=== PATIENT | female | born 1975 | race Caucasian/White ===

== ENCOUNTER 2017-06-28 21:20 | Emergency (ER) | payer MEDICAID ==
[~2017-06-28] VITALS: Ht 182.9 cm; Wt 63.5 kg
[~2017-06-28 21:20] MED LIST: TAB-TAB PO
[2017-06-28 21:53] VITALS: BP 165/72; PULSE 85; RESP 18; TEMP 97.7; O2SAT 98
[2017-06-28 22:10] VITALS: BP 138/76; PULSE 71; RESP 18; O2SAT 100
[2017-06-28] MEDS ORDERED: SODIUM CHLOR 0.9% 1000 ML INJ 1,000 ML IV SCH (22:26)
[2017-06-28] MEDS ORDERED: SODIUM CHLORIDE 0.9% FLUSH 10 ML FLUSH IV FLUSH PRN (22:30)
[2017-06-28] MEDS ORDERED: MORPHINE SULFATE 4 MG/ML INJ IV PUSH ONE (22:30)
[2017-06-28] MEDS ORDERED: ONDANSETRON HCL 4 MG/2 ML VIAL IVP ONE (22:30)
--- NOTE | 2017-06-28 22:33 | PD ---
HPI Chief Complaint: Abdominal Pain Time Seen by Provider: 22:28 Travel History International Travel<30 days: No Contact w/Intl Traveler<30days: No Traveled to known affect area: No History of Present Illness HPI 42-year-old female presents to the emergency department for evaluation of right lower quadrant abdominal pain that started yesterday afternoon. She currently rates the pain 9/10, aching and sharp without radiation. She does state the pain is worse with walking. She reports associated nausea, diarrhea. No vomiting. Patient denies . She denies abnormal vaginal discharge. No fevers or chills. She denies urinary symptoms. Patient denies any previous abdominal surgeries. No alleviating factors. Moderate severity. Patient does report history of ovarian cyst in the past with similar symptoms. PFSH Past Medical History Cardiovascular Problems: Yes (SVT, mitral valve prolapse) Diminished Hearing: No Tetanus Vaccination: < 5 Years Influenza Vaccination: No ?: Not LMP: 05/31/17 Past Surgical History Surgical History: No Previous Surgery Social History Alcohol Use: Yes (2-3 daily) Tobacco Use: Yes (1/2PPD) Substance Use: No Allergies-Medications (Allergen,Severity, Reaction): Coded Allergies: penicillin G (Unverified Allergy, Mild, Swelling, 12/12/16) Swelling- feet swelling Reported Meds & Prescriptions Reported Meds & Active Scripts Active No Active Prescriptions or Reported Medications Review of Systems Except as stated in HPI: all other systems reviewed are Neg Physical Exam Narrative GENERAL: Well-nourished, well-developed female patient, afebrile. SKIN: Focused skin assessment warm/dry. HEAD: Normocephalic. Atraumatic. EYES: No scleral icterus. No injection or drainage. NECK: Supple, trachea midline. No JVD or lymphadenopathy. CARDIOVASCULAR: Regular rate and rhythm without murmurs, gallops, or rubs. RESPIRATORY: Breath sounds equal bilaterally. No accessory muscle use. Lungs sounds are clear to auscultation. GASTROINTESTINAL: Abdomen soft and nondistended. Patient has tenderness over right pelvic and right lower quadrant over McBurney's point. MUSCULOSKELETAL: No cyanosis, or edema. BACK: Nontender without obvious deformity. No CVA tenderness. Data Data Last Documented VS Vital Signs Date Time Temp Pulse Resp B/P (MAP) Pulse Ox O2 Delivery O2 Flow Rate FiO2 06/28/17 22:10 71 18 138/76 (96) 100 Room Air 06/28/17 21:53 97.7 Orders Orders Complete Blood Count With Diff (06/28/17 22:26) Comprehensive Metabolic Panel (06/28/17:) Lipase (06/28/17 22:26) Prothrombin Time / Inr (Pt) (06/28/17 22:26) Act Partial Throm Time (Ptt) (06/28/17 22:26) Urinalysis - C+S If Indicated (06/28/17 22:26) Ct Abd/Pel W Iv Contrast(Rout) (06/28/17 22:26) Iv Access Insert/Monitor (06/28/17:) Ecg Monitoring (06/28/17:) Oximetry (06/28/17:) Morphine Inj (Morphine Inj) (06/28/17 22:30) Ondansetron Inj (Zofran Inj) (06/28/17 22:30) Sodium Chlor 0.9% 1000 Ml Inj (Ns 1000 M (06/28/17 22:26) Sodium Chloride 0.9% Flush (Ns Flush) (06/28/17 22:30) Ed Urine Pregnancytest Poc (06/28/17 22:26) Us Pelvis Comp W Doppler (06/28/17 ) MDM Medical Decision Making Medical Screen Exam Complete: Yes Emergency Medical Condition: Yes Medical Record Reviewed: Yes Differential Diagnosis Ovarian cyst versus ovarian torsion versus appendicitis versus UTI Narrative Course 42-year-old female presents to the emergency department for evaluation of right pelvic, right lower quadrant abdominal pain that started yesterday. CBC, CMP, Lipase, PTT, PT/INR, UA, UPT are ordered and pending. CT abdomen/pelvis with PO /IV contrast is ordered and pending. Pelvic US to r/o ovarian torsion is ordered and pending. Patient is given NS 1 L IV bolus, morphine 4 mg IV, Zofran [address] Chu will resume care and disposition of patient. Scripts No Active Prescriptions or Reported Meds Vanessa Miller Jun 28, 2017 22:32
[2017-06-28] MEDS ORDERED: DIATRIZOATE MEGLUM/DIATRIZOATE SOD 9 ML CUP ONE (22:44)
--- NOTE | 2017-06-28 23:32 | RADRPT ---
EXAM DATE/TIME: 06/28/2017 22:37 [facility] COMPARISON: No previous studies available for comparison. INDICATIONS : Pelvic pain. MEDICAL HISTORY : . Miscarriage. Uterine fibroids. Anxiety. Left shoulder pain. Mitral valve prolapse. SURGICAL HISTORY : Cervical cone biopsy. ENCOUNTER: Initial ACUITY: 1 day PAIN SCORE: 6/10 LOCATION: Bilateral pelvis MEASUREMENTS: UTERUS: 10.1 x 6.9 x 5.4 cm ENDOMETRIAL STRIPE: 9 mm RIGHT OVARY: 4.8 x 2.7 x 2.5 cm LEFT OVARY: 4.8 x 2.1 x 2.1 cm FINDINGS: UTERUS: The uterus is retroverted. The endometrial stripe is homogeneous echotexture. No endometrial fluid. There is a hypocholic area in the myometrium of the posterior body measuring 1.9 x 1.8 cm, probably representing a fibroid. RIGHT OVARY: Multiple ovarian cysts measuring up to 1.5 cm. There is also an intermediate echotexture non-shadowi ng non-vascular area within the ovary which measures 1.8 x 1.6 cm, possibly representing complicated or hemorrhagic cyst. LEFT OVARY: Multiple follicular cysts. MISCELLANEOUS: No free fluid. CONCLUSION: 1. Probable uterine fibroid. 2. Multiple bilateral ovarian cysts, with one lesion in the right ovary which is of intermediate echo texture and measuring 1.8 cm, possibly representing a hemorrhagic or complicated cyst. Amando Rodriguez MD on June 28, 2017 at 23:27 Board Certified Radiologist. This report was verified electronically.
[2017-06-28 23:38] LABS: AUTOMATED NEUTROPHIL # 3.9 TH/MM3 (1.8-7.7); BASOPHIL # 0.1 TH/MM3 (0-0.2); EOSINOPHIL # 0.1 TH/MM3 (0-0.4); EOSINOPHIL % 1.9 % (0.0-4.0); HEMOGLOBIN 12.9 GM/DL (11.6-15.3); LYMPH % 33.8 % (9.0-44.0); LYMPHOCYTE # 2.4 TH/MM3 (1.0-4.8); MEAN CORPUSCULAR HEMOGLOBIN 32.7 PG (27.0-34.0); MEAN CORPUSCULAR HGB CONC 34.8 % (32.0-36.0); MEAN PLATELET VOLUME 8.3 FL (7.0-11.0); MONO % 7.2 % (0.0-8.0); MONOCYTE # 0.5 TH/MM3 (0-0.9); NEUT % 56.1 % (16.0-70.0); PLATELET COUNT 234 TH/MM3 (150-450); RED BLOOD COUNT 3.94 MIL/MM3 (4.00-5.30); RED CELL DISTRIBUTION WIDTH 13.5 % (11.6-17.2)
[2017-06-28 23:45] LABS: BACTERIA, URINE RARE /hpf; BILIRUBIN, URINE NEG (NEG); BLOOD, URINE NEG (NEG); GLUCOSE,URINE NEG (NEG); KETONE, URINE NEG (NEG); MUCUS URINE FEW /lpf (OCC); NITRITE,URINE NEG (NEG); SQUAMOUS EPITHELIAL CELL URINE 5 /hpf (0-5); URINE COLOR YELLOW (YELLW/STRAW); URINE LEUKOCYTE ESTERASE NEG (NEG)
[2017-06-28 23:48] LABS: INTERNATIONAL NORMALIZED RATIO 1.1 RATIO; PROTHROMBIN TIME - PATIENT 10.7 SEC (9.8-11.6)
[2017-06-28 23:57] LABS: ALBUMIN 3.9 GM/DL (3.4-5.0); AST (GOT) 15 U/L (15-37); BICARBONATE 28.7 MEQ/L (21.0-32.0); BLOOD UREA NITROGEN 11 MG/DL (7-18); CHLORIDE 104 MEQ/L (98-107); CREATININE 0.88 MG/DL (0.50-1.00); GLOMERULAR FILTRATION RATE 71 ML/MIN (>89); GLUCOSE,RANDOM 78 MG/DL (74-106); SODIUM (NA) 141 MEQ/L (136-145)
[2017-06-28 23:58] LABS: ALT (GPT) 19 U/L (10-53)
[2017-06-29] LABS: ALKALINE PHOSPHATASE 47 U/L (45-117); TOTAL BILIRUBIN ADULT 0.6 MG/DL (0.2-1.0); TOTAL PROTEIN 7.1 GM/DL (6.4-8.2)
[2017-06-29] MEDS ORDERED: TRAM50TA PO (00:21)
[2017-06-29] MEDS ORDERED: IBUP-232 PO (00:21)
[2017-06-29] MEDS ORDERED: KETOROLAC TROMETHAMINE 30 MG/ML (IVP) VIAL IV PUSH ONE (00:30)
--- NOTE | 2017-06-29 00:33 | PD ---
Physical Exam Date Seen by Provider: Jun 29, 2017 Time Seen by Provider: 00:25 Narrative Patient is a 42-year-old female with right lower quadrant pain she has history of ovarian cyst. Patient ultrasound shows a large 1.5 cm most likely hemorrhagic cyst and that would explain her pain since her pain is right lower adnexal it is not at McBurney's point I feel it is safe to discharge her with a diagnosis of hemorrhagic cyst and avoid doing a CAT scan because the diagnosis is much higher than it is a hemorrhagic cyst she has no elevated white count and her serum and the risk benefit of doing a CAT scan I feel is not indicated at this time with a diagnosis of hemorrhagic cyst she is discharged home after Toradol 30 and given ibuprofen and tramadol a few tabs until she can see her doctor in the a.m. discharged home ovarian cyst hemorrhagic Data Data Last Documented VS Orders Orders Complete Blood Count With Diff (06/28/17 22:26) Comprehensive Metabolic Panel (06/28/17 22:26) Lipase (06/28/17 22:26) Prothrombin Time / Inr (Pt) (06/28/17 22:26) Act Partial Throm Time (Ptt) (06/28/17 22:26) Urinalysis - C+S If Indicated (06/28/17 22:26) Iv Access Insert/Monitor (06/28/17 22:26) Ecg Monitoring (06/28/17 22:26) Oximetry (06/28/17 22:26) Morphine Inj (Morphine Inj) (06/28/17 22:30) Ondansetron Inj (Zofran Inj) (06/28/17 22:30) Sodium Chlor 0.9% 1000 Ml Inj (Ns 1000 M (06/28/17 22:26) Sodium Chloride 0.9% Flush (Ns Flush) (06/28/17 22:30) Ed Urine Pregnancytest Poc (06/28/17 22:26) Oral Contrast - Adult (06/28/17 22:36) Diatrizoate Liq ( Gastroview Liq) (06/28/17 22:44) Us Pelvis Comp W Dop Transvag (06/28/17 ) Ketorolac Inj (Toradol Inj) (06/29/17 00:30) Labs Laboratory Tests Test 06/28/17 23:15 White Blood Count 7.0 TH/MM3 Red Blood Count 3.94 MIL/MM3 Hemoglobin 12.9 GM/DL Hematocrit 37.0 % Mean Corpuscular Volume 94.0 FL Mean Corpuscular Hemoglobin 32.7 PG Mean Corpuscular Hemoglobin Concent 34.8 % Red Cell Distribution Width 13.5 % Platelet Count 234 TH/MM3 Mean Platelet Volume 8.3 FL Neutrophils (%) (Auto) 56.1 % Lymphocytes (%) (Auto) 33.8 % Monocytes (%) (Auto) 7.2 % Eosinophils (%) (Auto) 1.9 % Basophils (%) (Auto) 1.0 % Neutrophils # (Auto) 3.9 TH/MM3 Lymphocytes # (Auto) 2.4 TH/MM3 Monocytes # (Auto) 0.5 TH/MM3 Eosinophils # (Auto) 0.1 TH/MM3 Basophils # (Auto) 0.1 TH/MM3 CBC Comment DIFF FINAL Differential Comment Prothrombin Time 10.7 SEC Prothromb Time International Ratio 1.1 RATIO Activated Partial Thromboplast Time 25.0 SEC Urine Color YELLOW Urine Turbidity CLEAR Urine pH 7.0 Urine Specific [place] 1.013 Urine Protein NEG mg/dL Urine Glucose (UA) NEG mg/dL Urine Ketones NEG mg/dL Urine Occult Blood NEG Urine Nitrite NEG Urine Bilirubin NEG Urine Urobilinogen LESS THAN 2.0 MG/DL Urine Leukocyte Esterase NEG Urine RBC 1 /hpf Urine WBC LESS THAN 1 /hpf Urine Squamous Epithelial Cells 5 /hpf Urine Bacteria RARE /hpf Urine Mucus FEW /lpf Microscopic Urinalysis Comment CULT NOT INDICATED Blood Urea Nitrogen 11 MG/DL Creatinine 0.88 MG/DL Random Glucose 78 MG/DL Total Protein 7.1 GM/DL Albumin 3.9 GM/DL Calcium Level 9.0 MG/DL Alkaline Phosphatase 47 U/L Aspartate Amino Transf (AST/SGOT) 15 U/L Alanine Aminotransferase (ALT/SGPT) 19 U/L Total Bilirubin 0.6 MG/DL Sodium Level 141 MEQ/L Potassium Level 3.3 MEQ/L Chloride Level 104 MEQ/L Carbon Dioxide Level 28.7 MEQ/L Anion Gap 8 MEQ/L Estimat Glomerular Filtration Rate 71 ML/MIN Lipase 149 U/L [facility] Supervised Visit with RAY: Yes Differential Diagnosis Ovarian cyst vs PID vs appendicits , vs other mesenteric adenitis Narrative Course Ultrasound shows a 1.5 cm hemorrhagic cyst which explains and correlates with her localized pain Toradol IV pain is improved discharged home follow-up as an outpatient patient is instructed to return immediately if the pain rises up to her abdomen she has any vomiting nausea at this time it completely seems it is in her reproductive system and not in her gastrointestinal system instructor with symptoms to look out for for possibility of it being an appendix that I am interpreting as an ovarian cyst Diagnosis Primary Impression: Ovarian cyst Qualified Codes: N83.201 - Unspecified ovarian cyst, right side Additional Impression: Hemorrhagic cyst of right ovary Patient Instructions: General Instructions, Ovarian Cyst (ED) Scripts Tramadol (Tramadol) 50 Mg Tab 50 MG PO Q6H Y for PAIN, #10 TAB 0 Refills Prov: Tk Chu MD 06/29/17 Ibuprofen (Ibuprofen) 600 Mg Tab 600 MG PO Q6H Y for Pain/Inflammation, #40 TAB 0 Refills Prov: Tk Chu MD 06/29/17 Disposition: 01 DISCHARGE HOME Condition: Good Tk Chu MD Jun 29, 2017 00:33
== END 2017-06-29 00:48 | disposition home or self-care (01) ==
LOC: NEPC 21:20
DX: N83.201 Unspecified ovarian cyst, right side (principal); F17.200 Nicotine dependence, unspecified, uncomplicated
CPT/HCPCS: 76830; 76856; 80053; 81001; 83690; 84703; 85025; 85610; 85730; 93975; 96374; 99285; J1885; J7030; Q9963